=== PATIENT | male | born 1975 | race Caucasian/White ===

== ENCOUNTER 2016-07-04 23:22 | Emergency (ER) | payer OTHER ==
[2016-07-04] MEDS ORDERED: FLUORESCEIN OPHTH 1 MG STRIP As Ordered ONE (23:43)
[2016-07-04] MEDS ORDERED: TETRACAINE 0.5% OPHTH SOLN 4ML As Ordered ONE (23:43)
[2016-07-05] MEDS ORDERED: ERYTHROMYCIN OPHTH OINT As Ordered ONE
[2016-07-05] MEDS ORDERED: ACETAMINOPHEN 325 MG TAB As Ordered ONE (00:01)
--- NOTE | 2016-07-05 00:11 | EDDOCDS ---
Nurse's Notes [facility] Name: Kobi Brewster Age: 40 yrs Sex: Male : 1975 Arrival Date: 07/04/2016 Time: 23:22 Bed I10 / 23 Private MD: FRANKO Marquez Diagnosis: Injury of conjunctiva and corneal abrasion without foreign body, right eye;Edema of right orbit Presentation: 07/04 23:28 Presenting complaint: Patient states: Eye pain just today. Mechanism of Injury: No mcp Mechanism of Injury. The patient denies any loss of vision. Adult Sepsis Screening: The patient does not have new or worsening altered mentation. Patient's respiratory rate is less than 22. Systolic blood pressure is greater than 100. Patient has a qSOFA score of 0- Negative Sepsis Screen. Suicide/Homicide risk assessment- the patient denies having any suicidal and/or homicidal ideations and does not present with any other emotional, behavioral or mental health complaints. Status: The patient is an active duty government services professional. Transition of care: patient was not received from another setting of care. 23:28 Acuity: LAST Level 4 [facility] 23:28 Method Of Arrival: Walkin/Carried/Asstd [facility] Triage Assessment: 23:30 General: Appears uncomfortable, Behavior is cooperative. Pain: Location: right eye Pain mcp currently is 8 out of 10 on a pain scale. HIV screening NA for this visit Offered previously. Neurological: No deficits noted. EENT: Sclera/Cornea are reddened in outer aspect of conjuctiva of right eye and inner aspect of conjuctiva of right eye. Respiratory: No deficits noted. Derm: Skin is pink, warm & dry. Historical: - Allergies: no known allergies; - Home Meds: 1. lisinopril-hydrochlorothiazide 20-12.5 mg oral tab 1 tab once daily - PMHx: Hypertension; - PSHx: none; - Social history: Smoking status: Patient states was never smoker of tobacco. No barriers to communication noted, The patient speaks fluent Chinese. - Family history: Not pertinent. - : The pt / caregiver states he / she is not on anticoagulants. Home medication list is obtained from the patient. - Exposure Risk Screening:: None identified. Screenin/26 00:08 Screening information is obtained from the patient. Fall risk: No risks identified. ko2 Assistance ADL's: requires no assistance with activities of daily living. Abuse/DV Screen: The patient / caregiver reports he/she is: not in a situation that causes fear, pain or injury. Nutritional screening: No deficits noted. Advance Directives: Currently, there is no health care proxy. There is no active DNR order. There is no living will. There is no Power of Foil Stamp Operator. home support is adequate. Assessment: 07/04 23:45 General: Appears in no apparent distress, Behavior is appropriate for age, cooperative. ko2 Pain: Location: right eye. Neurological: Level of Consciousness is awake, alert, Oriented to person, place, time. EENT: Eyes are tearing on right eye. Respiratory: Airway is patent Respiratory effort is even, unlabored. Derm: Skin is pink, warm & dry. Vital Signs: 23:23 BP 159 / 95; Pulse 62; Resp 16; Temp 98.4(O); Pulse Ox 98% on R/A; Weight 86.18 kg (R); lr2 Height 68 in. (172.72 cm) (R); Pain 7/10; 07/05 00:08 BP 135 / 88; ko2 07/04 23:23 Body Mass Index 28.89 (86.18 kg, 172.72 cm) lr2 Vitals: 07/04 23:23 Log In Time: July 04, 2016 at 23:22. lr2 Visual Acuity: 23:37 Left Eye Visual acuity 20/30, ; Right Eye Visual acuity 20/30, ; Without Lenses; [facility] ED Course: 23:23 Patient visited by Munira Wren. lr2 23:23 Patient moved to Waiting lr2 23:25 Jimmy [facility] is Private Physician. lr2 23:26 Patient moved to Pre RCE lr2 23:29 Triage Initiated mcp 23:31 Patient visited by Meme Dyer RN. [facility] 23:37 Patient moved to I10 / 23 [facility] 23:42 En Ann PA is PHCP. mo1 23:42 Macario Sarmiento DO is Attending Physician. mo1 23:52 Patient visited by En Ann PA. mo1 23:54 FRANKO Marquez is Referral Physician. mo1 07/05 00:09 The patient / caregiver is instructed regarding the plan of care and ED course. ko2 00:09 No IV's were initiated during this patient's visit. No procedures done that require ko2 assistance. Administered Medications: 07/04 23:47 Drug: Tetracaine (PF) 2 drps [tetracaine HCl (PF) 0.5 % eye drops (2 drps)] Route: slm Ophthalmic; Site: right eye; 23:47 Drug: Fluorescein 1 strips [fluorescein 1 mg eye strips (1 strips)] {Note: PER PA .} slm Route: Ophthalmic; Site: right eye; 07/05 00:08 Drug: Acetaminophen 975 mg [acetaminophen 325 mg tablet (3 tabs)] Route: PO; ko2 00:08 Drug: erythromycin 1 applic [erythromycin 5 mg/gram (0.5 %) eye ointment (1 applic)] ko2 Route: Ophthalmic; Site: right eye; Order Results: There are currently no results for this order. Outcome: 07/04 23:54 Discharge ordered by Provider. mo1 07/05 00:10 Discharge Assessment: Patient awake, alert and oriented x 3. No cognitive and/or ko2 functional deficits noted. Patient verbalized understanding of disposition instructions. patient administered narcotics - no. The following High Risk Discharge criteria are identified: None. Discharged to home ambulatory. Condition: stable. Discharge instructions given to patient, Instructed on discharge instructions, follow up and referral plans. medication usage, Demonstrated understanding of instructions, medications, Pt was receptive of discharge instructions/ teaching. Prescriptions given X 2. No special radiology studies were completed. Property sent home with patient. 00:10 Patient left the ED. ko2 Signatures: Meme Dyer RN RN mcp O'Hagan, Michael, PA PA mo1 Adelita Tyson LPN LPN Loan Sanchez RN RN ko2 Munira Wren lr2 Corrections: (The following items were deleted from the chart) 07/04 23:26 23:23 Pulse 62bpm; Resp 16bpm; Pulse Ox 98% RA; Temp 98.4F Oral; 86.18 kg Reported; lr2 Height 68 in. Reported; BMI: 28.8; Pain 7/10; lr2 MTDD
--- NOTE | 2016-07-05 00:11 | EDDOCDS ---
Physician Documentation [facility] Name: Kobi Brewster Age: 40 yrs Sex: Male : 1975 Arrival Date: 07/04/2016 Time: 23:22 Bed I1 Private MD: FRANKO Marquez Disposition: 07/04/16 23:54 Discharged to Home/Self Care. Impression: Injury of conjunctiva and corneal abrasion without foreign body, right eye, Edema of right orbit. - Condition is Stable. - Discharge Instructions: Corneal Abrasion. - Prescriptions for Ibuprofen 800 mg Oral Tablet - take 1 tablet by ORAL route every 8 hours As needed take with food; 30 tablet. Erythromycin 5 mg/gram (0.5 %) Ophthalmic Ointment - apply 1 centimeter by OPHTHALMIC route 2-3 times daily for 7 days; 1 tube. - Medication Reconciliation, Local Pharmacy Hours form. - Follow up: FRANKO Marquez; When: Call to arrange an appointment; Reason: Recheck today's complaints, Continuance of care. - Problem is new. - Symptoms are unchanged. Historical: - Allergies: no known allergies; - Home Meds: 1. lisinopril-hydrochlorothiazide 20-12.5 mg oral tab 1 tab once daily - PMHx: Hypertension; - PSHx: none; - Social history: Smoking status: Patient states was never smoker of tobacco. No barriers to communication noted, The patient speaks fluent Guinean. - Family history: Not pertinent. - : The pt / caregiver states he / she is not on anticoagulants. Home medication list is obtained from the patient. - Exposure Risk Screening:: None identified. Vital Signs: 07/04 23:23 BP 159 / 95; Pulse 62; Resp 16; Temp 98.4(O); Pulse Ox 98% on R/A; Weight 86.18 kg / lr2 189.99 lbs (R); Height 68 in. (172.72 cm) (R); Pain 7/10; 07/05 00:08 BP 135 / 88; ko2 07/04 23:23 Body Mass Index 28.89 (86.18 kg, 172.72 cm) lr2 Visual Acuity: 07/04 23:37 Left Eye Visual acuity 20/30, ; Right Eye Visual acuity 20/30, ; Without Lenses; mcp MDM: 23:42 Tetracaine (PF) Drops 0.5 % 2 drps Ophthalmic once ordered. mo1 23:42 Fluorescein Strip 1 strips Ophthalmic once ordered. mo1 23:53 Acetaminophen Tablet 975 mg PO once ordered. mo1 23:53 erythromycin Ointment 1 applic Ophthalmic once; right eye every 8hrs ordered. mo1 Administered Medications: 23:47 Drug: Tetracaine (PF) 2 drps [tetracaine HCl (PF) 0.5 % eye drops (2 drps)] Route: slm Ophthalmic; Site: right eye; 23:47 Drug: Fluorescein 1 strips [fluorescein 1 mg eye strips (1 strips)] {Note: PER PA .} slm Route: Ophthalmic; Site: right eye; 07/05 00:08 Drug: Acetaminophen 975 mg [acetaminophen 325 mg tablet (3 tabs)] Route: PO; ko2 00:08 Drug: erythromycin 1 applic [erythromycin 5 mg/gram (0.5 %) eye ointment (1 applic)] ko2 Route: Ophthalmic; Site: right eye; Signatures: Meme Dyer RN RN mcp O'Hagan, Michael, PA PA mo1 Loan López RN RN ko2 Adelita Tyson LPN [facility] LUIS MANUEL
--- NOTE | 2016-07-07 01:11 | EDDOCDS ---
Nurse's Notes [facility] Name: Kobi Brewster Age: 40 yrs Sex: Male : 1975 Arrival Date: 07/04/2016 Time: 23:22 Bed I10 / 23 Private MD: FRANKO Marquez Diagnosis: Injury of conjunctiva and corneal abrasion without foreign body, right eye;Edema of right orbit Presentation: 07/04 23:28 Presenting complaint: Patient states: Eye pain just today. Mechanism of Injury: No mcp Mechanism of Injury. The patient denies any loss of vision. Adult Sepsis Screening: The patient does not have new or worsening altered mentation. Patient's respiratory rate is less than 22. Systolic blood pressure is greater than 100. Patient has a qSOFA score of 0- Negative Sepsis Screen. Suicide/Homicide risk assessment- the patient denies having any suicidal and/or homicidal ideations and does not present with any other emotional, behavioral or mental health complaints. Status: The patient is an active duty product manager financial services. Transition of care: patient was not received from another setting of care. 23:28 Acuity: LAST Level 4 [facility] 23:28 Method Of Arrival: Walkin/Carried/Asstd [facility] Triage Assessment: 23:30 General: Appears uncomfortable, Behavior is cooperative. Pain: Location: right eye Pain mcp currently is 8 out of 10 on a pain scale. HIV screening NA for this visit Offered previously. Neurological: No deficits noted. EENT: Sclera/Cornea are reddened in outer aspect of conjuctiva of right eye and inner aspect of conjuctiva of right eye. Respiratory: No deficits noted. Derm: Skin is pink, warm & dry. Historical: - Allergies: no known allergies; - Home Meds: 1. lisinopril-hydrochlorothiazide 20-12.5 mg oral tab 1 tab once daily - PMHx: Hypertension; - PSHx: none; - Social history: Smoking status: Patient states was never smoker of tobacco. No barriers to communication noted, The patient speaks fluent Maori. - Family history: Not pertinent. - : The pt / caregiver states he / she is not on anticoagulants. Home medication list is obtained from the patient. - Exposure Risk Screening:: None identified. Screenin/26 00:08 Screening information is obtained from the patient. Fall risk: No risks identified. ko2 Assistance ADL's: requires no assistance with activities of daily living. Abuse/DV Screen: The patient / caregiver reports he/she is: not in a situation that causes fear, pain or injury. Nutritional screening: No deficits noted. Advance Directives: Currently, there is no health care proxy. There is no active DNR order. There is no living will. There is no Power of Inspector Line. home support is adequate. Assessment: 07/04 23:45 General: Appears in no apparent distress, Behavior is appropriate for age, cooperative. ko2 Pain: Location: right eye. Neurological: Level of Consciousness is awake, alert, Oriented to person, place, time. EENT: Eyes are tearing on right eye. Respiratory: Airway is patent Respiratory effort is even, unlabored. Derm: Skin is pink, warm & dry. Vital Signs: 23:23 BP 159 / 95; Pulse 62; Resp 16; Temp 98.4(O); Pulse Ox 98% on R/A; Weight 86.18 kg (R); lr2 Height 68 in. (172.72 cm) (R); Pain 7/10; 07/05 00:08 BP 135 / 88; ko2 07/04 23:23 Body Mass Index 28.89 (86.18 kg, 172.72 cm) lr2 Vitals: 07/04 23:23 Log In Time: July 04, 2016 at 23:22. lr2 Visual Acuity: 23:37 Left Eye Visual acuity 20/30, ; Right Eye Visual acuity 20/30, ; Without Lenses; [facility] ED Course: 23:23 Patient visited by Munira Wren. lr2 23:23 Patient moved to Waiting lr2 23:25 Jimmy [facility] is Private Physician. lr2 23:26 Patient moved to Pre RCE lr2 23:29 Triage Initiated mcp 23:31 Patient visited by Meme Dyer RN. [facility] 23:37 Patient moved to I10 / 23 [facility] 23:42 En Ann PA is PHCP. mo1 23:42 Macario Sarimento DO is Attending Physician. mo1 23:52 Patient visited by En Ann PA. mo1 23:54 FRANKO Marquez is Referral Physician. mo1 07/05 00:09 The patient / caregiver is instructed regarding the plan of care and ED course. ko2 00:09 No IV's were initiated during this patient's visit. No procedures done that require ko2 assistance. 01:36 [facility] Payment Agreement was scanned into [employer] and attached to record. hs2 01:39 Patient name changed from Kobi\S\\S\Brewster\S\ to Kobi\S\Jeremiah\S\Brewster. EDMS 08:24 T-Sheet-- Draft Copy was scanned into [employer] and attached to record. seh Administered Medications: 07/04 23:47 Drug: Tetracaine (PF) 2 drps [tetracaine HCl (PF) 0.5 % eye drops (2 drps)] Route: slm Ophthalmic; Site: right eye; 23:47 Drug: Fluorescein 1 strips [fluorescein 1 mg eye strips (1 strips)] {Note: PER PA .} slm Route: Ophthalmic; Site: right eye; 07/05 00:08 Drug: Acetaminophen 975 mg [acetaminophen 325 mg tablet (3 tabs)] Route: PO; ko2 00:08 Drug: erythromycin 1 applic [erythromycin 5 mg/gram (0.5 %) eye ointment (1 applic)] ko2 Route: Ophthalmic; Site: right eye; Order Results: There are currently no results for this order. Outcome: 07/04 23:54 Discharge ordered by Provider. mo1 07/05 00:10 Discharge Assessment: Patient awake, alert and oriented x 3. No cognitive and/or ko2 functional deficits noted. Patient verbalized understanding of disposition instructions. patient administered narcotics - no. The following High Risk Discharge criteria are identified: None. Discharged to home ambulatory. Condition: stable. Discharge instructions given to patient, Instructed on discharge instructions, follow up and referral plans. medication usage, Demonstrated understanding of instructions, medications, Pt was receptive of discharge instructions/ teaching. Prescriptions given X 2. No special radiology studies were completed. Property sent home with patient. 00:10 Patient left the ED. ko2 Signatures: Dispatcher [employer] EDMS Meme Dyer RN RN mcp O'Hagan, Michael, PA PA mo1 Adelita Tyson LPN LPN Loan Martinez RN RN ko2 Maggi Mendenhall, Reg Reg hs2 Hoffert, Maral seh Ross, Munira lr2 Corrections: (The following items were deleted from the chart) 07/04 23:26 23:23 Pulse 62bpm; Resp 16bpm; Pulse Ox 98% RA; Temp 98.4F Oral; 86.18 kg Reported; lr2 Height 68 in. Reported; BMI: 28.8; Pain 7/10; lr2 Chart Complete MTDD
--- NOTE | 2016-07-07 01:11 | EDDOCDS ---
Physician Documentation [facility] Name: Kobi Brewster Age: 40 yrs Sex: Male : 1975 Arrival Date: 07/04/2016 Time: 23:22 Bed I1 Private MD: FRANKO Marquez Disposition: 07/04/16 23:54 Discharged to Home/Self Care. Impression: Injury of conjunctiva and corneal abrasion without foreign body, right eye, Edema of right orbit. - Condition is Stable. - Discharge Instructions: Corneal Abrasion. - Prescriptions for Ibuprofen 800 mg Oral Tablet - take 1 tablet by ORAL route every 8 hours As needed take with food; 30 tablet. Erythromycin 5 mg/gram (0.5 %) Ophthalmic Ointment - apply 1 centimeter by OPHTHALMIC route 2-3 times daily for 7 days; 1 tube. - Medication Reconciliation, Local Pharmacy Hours form. - Follow up: FRANKO Marquez; When: Call to arrange an appointment; Reason: Recheck today's complaints, Continuance of care. - Problem is new. - Symptoms are unchanged. Historical: - Allergies: no known allergies; - Home Meds: 1. lisinopril-hydrochlorothiazide 20-12.5 mg oral tab 1 tab once daily - PMHx: Hypertension; - PSHx: none; - Social history: Smoking status: Patient states was never smoker of tobacco. No barriers to communication noted, The patient speaks fluent Spanish. - Family history: Not pertinent. - : The pt / caregiver states he / she is not on anticoagulants. Home medication list is obtained from the patient. - Exposure Risk Screening:: None identified. Vital Signs: 07/04 23:23 BP 159 / 95; Pulse 62; Resp 16; Temp 98.4(O); Pulse Ox 98% on R/A; Weight 86.18 kg / lr2 189.99 lbs (R); Height 68 in. (172.72 cm) (R); Pain 7/10; 07/05 00:08 BP 135 / 88; ko2 07/04 23:23 Body Mass Index 28.89 (86.18 kg, 172.72 cm) lr2 Visual Acuity: 07/04 23:37 Left Eye Visual acuity 20/30, ; Right Eye Visual acuity 20/30, ; Without Lenses; mcp MDM: 23:42 Tetracaine (PF) Drops 0.5 % 2 drps Ophthalmic once ordered. mo1 23:42 Fluorescein Strip 1 strips Ophthalmic once ordered. mo1 23:53 Acetaminophen Tablet 975 mg PO once ordered. mo1 23:53 erythromycin Ointment 1 applic Ophthalmic once; right eye every 8hrs ordered. mo1 07/05 01:36 [facility] Payment Agreement was scanned into [employer] and attached to record. hs2 08:24 T-Sheet-- Draft Copy was scanned into [employer] and attached to record. seh Administered Medications: 07/04 23:47 Drug: Tetracaine (PF) 2 drps [tetracaine HCl (PF) 0.5 % eye drops (2 drps)] Route: slm Ophthalmic; Site: right eye; 23:47 Drug: Fluorescein 1 strips [fluorescein 1 mg eye strips (1 strips)] {Note: PER ANANYA .} [facility] Route: Ophthalmic; Site: right eye; 07/05 00:08 Drug: Acetaminophen 975 mg [acetaminophen 325 mg tablet (3 tabs)] Route: PO; ko2 00:08 Drug: erythromycin 1 applic [erythromycin 5 mg/gram (0.5 %) eye ointment (1 applic)] ko2 Route: Ophthalmic; Site: right eye; Signatures: Meme Dyer RN RN mcp O'Hagan, Michael, PA PA mo1 Loan López RN RN ko2 Maggi Mendenhall, Reg Reg hs2 Maral Locke Stephanie LPN [facility] The chart was reviewed and I authenticate all verbal orders and agree with the evaluation and treatment provided.Attachments: 01:36 [facility] Payment Agreement hs2 08:24 T-Sheet-- Draft Copy [facility] Chart Complete MTDD
--- NOTE | 2016-07-07 01:11 | EDDOCDS ---
Physician Documentation [facility] Name: Kobi Brewster Age: 40 yrs Sex: Male : 1975 Arrival Date: 07/04/2016 Time: 23:22 Bed I1 Private MD: FRANKO Marquez Disposition: 07/04/16 23:54 Discharged to Home/Self Care. Impression: Injury of conjunctiva and corneal abrasion without foreign body, right eye, Edema of right orbit. - Condition is Stable. - Discharge Instructions: Corneal Abrasion. - Prescriptions for Ibuprofen 800 mg Oral Tablet - take 1 tablet by ORAL route every 8 hours As needed take with food; 30 tablet. Erythromycin 5 mg/gram (0.5 %) Ophthalmic Ointment - apply 1 centimeter by OPHTHALMIC route 2-3 times daily for 7 days; 1 tube. - Medication Reconciliation, Local Pharmacy Hours form. - Follow up: FRANKO Marquez; When: Call to arrange an appointment; Reason: Recheck today's complaints, Continuance of care. - Problem is new. - Symptoms are unchanged. Historical: - Allergies: no known allergies; - Home Meds: 1. lisinopril-hydrochlorothiazide 20-12.5 mg oral tab 1 tab once daily - PMHx: Hypertension; - PSHx: none; - Social history: Smoking status: Patient states was never smoker of tobacco. No barriers to communication noted, The patient speaks fluent Solomon Islander. - Family history: Not pertinent. - : The pt / caregiver states he / she is not on anticoagulants. Home medication list is obtained from the patient. - Exposure Risk Screening:: None identified. Vital Signs: 07/04 23:23 BP 159 / 95; Pulse 62; Resp 16; Temp 98.4(O); Pulse Ox 98% on R/A; Weight 86.18 kg / lr2 189.99 lbs (R); Height 68 in. (172.72 cm) (R); Pain 7/10; 07/05 00:08 BP 135 / 88; ko2 07/04 23:23 Body Mass Index 28.89 (86.18 kg, 172.72 cm) lr2 Visual Acuity: 07/04 23:37 Left Eye Visual acuity 20/30, ; Right Eye Visual acuity 20/30, ; Without Lenses; mcp MDM: 23:42 Tetracaine (PF) Drops 0.5 % 2 drps Ophthalmic once ordered. mo1 23:42 Fluorescein Strip 1 strips Ophthalmic once ordered. mo1 23:53 Acetaminophen Tablet 975 mg PO once ordered. mo1 23:53 erythromycin Ointment 1 applic Ophthalmic once; right eye every 8hrs ordered. mo1 07/05 01:36 [facility] [place] Agreement was scanned into [employer] and attached to record. hs2 08:24 T-Sheet-- Draft Copy was scanned into [employer] and attached to record. seh Administered Medications: 07/04 23:47 Drug: Tetracaine (PF) 2 drps [tetracaine HCl (PF) 0.5 % eye drops (2 drps)] Route: slm Ophthalmic; Site: right eye; 23:47 Drug: Fluorescein 1 strips [fluorescein 1 mg eye strips (1 strips)] {Note: PER ANANYA .} [facility] Route: Ophthalmic; Site: right eye; 07/05 00:08 Drug: Acetaminophen 975 mg [acetaminophen 325 mg tablet (3 tabs)] Route: PO; ko2 00:08 Drug: erythromycin 1 applic [erythromycin 5 mg/gram (0.5 %) eye ointment (1 applic)] ko2 Route: Ophthalmic; Site: right eye; Signatures: Meme Dyer RN RN mcp O'Hagan, Michael, PA PA mo1 Loan López RN RN ko2 Maggi Mendenhall, Reg Reg hs2 Maral Locke Stephanie LPN [facility] The chart was reviewed and I authenticate all verbal orders and agree with the evaluation and treatment provided.Attachments: 01:36 [facility] Payment Agreement hs2 08:24 T-Sheet-- Draft Copy [facility] Chart Complete MTDD
== END 2016-07-05 00:10 | disposition home or self-care (01) ==
LOC: M ED 23:22
DX: S05.01XA Injury of conjunctiva and corneal abrasion without foreign body, right eye, initial encounter (principal); H05.221 Edema of right orbit; X58.XXXA Exposure to other specified factors, initial encounter; Y92.9 Unspecified place or not applicable; Y93.9 Activity, unspecified; Y99.9 Unspecified external cause status; I10 Essential (primary) hypertension; Z79.899 Other long term (current) drug therapy